=== PATIENT | male | born 1940 | race Caucasian/White ===

== ENCOUNTER 2017-02-17 00:11 | Emergency (ER) | payer OTHER ==
[~2017-02-17] VITALS: Ht 165.1 cm; Wt 72.5 kg
[2017-02-17] MEDS ORDERED: ASPI-496 PO (00:47)
[2017-02-17] MEDS ORDERED: SODIUM CHLORIDE FLUSH 10ML SYR IVF ONE (01:00)
[2017-02-17] MEDS ORDERED: SODIUM CHLORIDE 0.9% 1,000ML IVBOLUS ONE (01:00)
[2017-02-17 01:29] LABS: ASPARTATE AMINO TRANSFERASE 21 U/L (15-37); BLOOD UREA NITROGEN 22 mg/dL (7-18)
[2017-02-17 01:33] LABS: IS PT STATUS REG ER OR PRE ER? YES
[2017-02-17 02:53] VITALS: BP 120/59
== END 2017-02-17 02:56 | disposition home or self-care (01) ==
LOC: ED 01:09
DX: I48.91 Unspecified atrial fibrillation (principal)
CPT/HCPCS: 36415; 71020; 80053; 83880; 84484; 85025; 85610; 85730; 93005; 96360; 99285; J7030

== ENCOUNTER → 2019-11-07 | Outpatient (CLI) | payer MEDICARE, MEDICAID ==
[~2019-11-07] MED LIST: ASPI-496 PO
== END | disposition home or self-care (01) ==
LOC: CVU 07:09
PROVIDERS: ATTEND Internal Medicine Cardiovascular Disease
DX: I08.8 Other rheumatic multiple valve diseases (principal); I48.91 Unspecified atrial fibrillation
CPT/HCPCS: 93306; 93356

== ENCOUNTER 2020-01-01 12:09 | Outpatient (CLI) | payer MEDICARE, MEDICAID ==
[~2020-01-01 12:09] MED LIST changes: +REGADENOSON 0.4 MG/5 ML SYRINGE ONE
== END 2020-01-01 23:59 | disposition home or self-care (01) ==
LOC: CFH 12:09
PROVIDERS: ATTEND Nurse Practitioner Family
DX: I48.91 Unspecified atrial fibrillation (principal); R00.2 Palpitations
CPT/HCPCS: 78452; 93017; A9502; J2785

== ENCOUNTER 2020-01-17 08:57 | Day surgery (SDC) | payer MEDICARE, MEDICAID ==
[~2020-01-17] VITALS: Ht 175.3 cm; Wt 77.0 kg
[~2020-01-17 08:57] MED LIST changes: -REGADENOSON 0.4 MG/5 ML SYRINGE ONE
[2020-01-17] MEDS ORDERED: SODIUM CHLORIDE 0.9% 1,000 ML IV SCH (09:26)
[2020-01-17 09:38] VITALS: BP 116/63
[2020-01-17 09:50] LABS: BASOPHILS # (AUTO) 0.04 x10^3/uL (0-0.1); BASOPHILS % (AUTO) 1 % (0-1); EOSINOPHILS # (AUTO) 0.23 x10^3/uL (0-0.4); EOSINOPHILS % (AUTO) 5 % (1-7); LYMPHOCYTES # (AUTO) 1.19 x10^3/uL (1-3.4); LYMPHOCYTES % (AUTO) 25 % (22-44); MD NO; MEAN CORPUSCULAR HEMOGLOBIN 31.5 pg (27.5-34.5); MEAN CORPUSCULAR HGB CONC 33.3 g/dL (33.2-36.2); MEAN CORPUSCULAR VOLUME 94.7 fL (81-97); MEAN PLATELET VOLUME 8.6 fL (7.4-10.4); MONOCYTES # (AUTO) 0.37 x10^3/uL (0.2-0.8); MONOCYTES % (AUTO) 8 % (2-9); NEUTROPHILS # (AUTO) 2.95 x10^3/uL (1.8-6.8); NEUTROPHILS % (AUTO) 62 % (42-75); PLATELET COUNT 214 x10^3/uL (130-400); RED BLOOD COUNT 4.67 x10^6/uL (4.38-5.82); RED CELL DISTRIBUTION WIDTH 14.2 % (9.4-14.8)
[2020-01-17] MEDS ORDERED: RIVA20TA PO (09:55)
[2020-01-17 10:02] LABS: ALANINE AMINOTRANSFERASE 59 U/L (12-78); ALBUMIN 3.7 g/dL (3.4-5.0); ANION GAP 4 mmol/L (5-15); CALCIUM 8.8 mg/dL (8.5-10.1); CHLORIDE 109 mmol/L (98-107); CREATININE 0.91 mg/dL (0.7-1.3)
[2020-01-17 10:04] LABS: ALKALINE PHOSPHATASE 72 U/L (45-117); BILIRUBIN,TOTAL 0.7 mg/dL (0.2-1.0); TOTAL PROTEIN 7.3 g/dL (6.4-8.2)
[2020-01-17] MEDS ORDERED: TICAGRELOR 90 MG TABLET ONE (11:39)
[2020-01-17] MEDS ORDERED: FENTANYL PF 100 MCG/2ML ONE (11:39)
[2020-01-17] MEDS ORDERED: BIVALIRUDIN 250 MG ONE (11:39)
[2020-01-17] MEDS ORDERED: LIDOCAINE-MPF 1%, 5ML ONE (11:39)
[2020-01-17] MEDS ORDERED: HEPARIN 1,000 UNITS/ML, 10ML ONE (11:39)
[2020-01-17] MEDS ORDERED: MIDAZOLAM 1 MG/ML, 5ML ONE (11:39)
[2020-01-17] MEDS ORDERED: METO25TA35 PO (13:36)
== END 2020-01-17 13:13 | disposition home or self-care (01) ==
LOC: CACL 08:57
PROVIDERS: ATTEND Internal Medicine Cardiovascular Disease
DX: R93.1 Abnormal findings on diagnostic imaging of heart and coronary circulation (principal); I25.110 Atherosclerotic heart disease of native coronary artery with unstable angina pectoris; I25.83 Coronary atherosclerosis due to lipid rich plaque; I77.1 Stricture of artery; I48.0 Paroxysmal atrial fibrillation; Z79.01 Long term (current) use of anticoagulants
CPT/HCPCS: 36415; 80053; 85025; 93458; 99156; 99157; C1769; C1894; J1644; J2250; J3010; Q9967; J0583